=== PATIENT | female | born 1980 | race Caucasian/White ===

== ENCOUNTER 2025-10-16 00:50 | Emergency (ER) | payer SELFPAY ==
[~2025-10-16] VITALS: Ht 147.3 cm; Wt 66.2 kg
[2025-10-16 01:07] VITALS: O2SAT 92
[2025-10-16] MEDS: ONDANSETRON 4MG ODT PO ONE (01:46)
[2025-10-16] MEDS: ACETAMINOPHEN 500MG TABLET PO ONE (01:46)
[2025-10-16] MEDS: ONDANSETRON HCL 4MG/2ML INJ IM ONE (02:17)
[2025-10-16 03:31] LABS: BASOPHILS % 0.4 % (0.0-2.0); EOSINOPHILS % 0.3 % (0.0-5.0); HEMATOCRIT. 31.0 % (36.0-48.0); HEMOGLOBIN. 9.0 g/dL (12.0-16.0); LYMPHOCYTES % 10.7 % (20.0-50.0); MEAN PLATELET VOLUME 8.6 fl (7.4-10.4); MONOCYTES % 4.1 % (2.0-8.0); NEUTROPHILS % 84.5 % (40.0-76.0); PLATELET 223 x1000/uL (130-400); RED BLOOD CELL COUNT 4.53 mill/uL (4.2-5.4); RED CELL DISTRIBUTION WIDTH 21.6 % (11.6-14.6)
[2025-10-16 03:37] LABS: ADD RBC MORPHOLOGY YES
[2025-10-16 03:46] LABS: CLARITY URINE TURBID (CLEAR); COLOR URINE RED (YELLOW); GLUCOSE URINE NEGATIVE (NEGATIVE); KETONES URINE NEGATIVE (NEGATIVE); LEUKOCYTE ESTERASE URINE 2+ (NEGATIVE); NITRITE URINE POSITIVE (NEGATIVE); OCCULT BLOOD URINE 3+ (NEGATIVE); PH URINE 5.0 (4.5-8.0); PROTEIN URINE 2+ (NEGATIVE); SPECIFIC GRAVITY URINE 1.029 (1.005-1.030); UROBILINOGEN URINE 0.2 E.U./dL (0.2-1.0)
[2025-10-16 03:51] LABS: CREATININE 0.6 mg/dL (0.6-1.0); UREA NITROGEN BLOOD 9 mg/dL (9-23)
[2025-10-16 03:53] LABS: ASPARTATE AMINOTRANSFERASE 33 IU/L (<34); BILIRUBIN DIRECT 0.1 mg/dL (<=3.0)
[2025-10-16 03:54] LABS: BILIRUBIN TOTAL 0.4 mg/dL (0.1-1.0); PROTEIN TOTAL 7.5 g/dL (6.0-8.3)
[2025-10-16 04:06] LABS: SQUAMOUS EPITHELIAL CELL URINE RARE /lpf (RARE/1+)
[2025-10-16 04:09] LABS: BACTERIA URINE 3+
[2025-10-16 04:22] LABS: PLATELET ESTIMATE NORMAL
[2025-10-16] MEDS ORDERED: CEPH500C2 MT (04:35)
[2025-10-16 04:47] VITALS: BP 111/53; PULSE 91; RESP 18; TEMP 36.8; O2SAT 97
== END 2025-10-16 04:50 | disposition home or self-care (01) ==
LOC: ER 00:50
DX: N39.0 Urinary tract infection, site not specified (principal); D64.9 Anemia, unspecified; Z90.710 Acquired absence of both cervix and uterus
CPT/HCPCS: 99284; 80076; 80048; 81003; 81025; 85025; 36415; 93005; 96372; Q0162; J2405